=== PATIENT | female | born 1990 | race Caucasian/White ===

== ENCOUNTER 2017-09-18 16:47 | Emergency (ER) | payer OTHER ==
[~2017-09-18] VITALS: Ht 165.1 cm; Wt 52.2 kg
--- NOTE | 2017-09-18 17:53 | ED Upper Extremity ---
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 It is worse in the morning when she wakes up and she has to rub it out. She feels tingling and numbness and pain. She has used Tylenol with moderate relief. 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 She has not use any creams. She did get a splint for one of her hands that her mom has carpal tunnel and her home. She has a hard time working with the splint. She does not have a primary care physician and is still working on getting her insurance approved as she has recently moved to the area from [place]. She does not have any significant medical or surgical history. She has not experienced any weakness in her hands or dropping things. She denies any fevers, chills, nausea, vomiting, diarrhea, chest pain, shortness of breath , rash. No history of trauma to either extremity. Allergies and Home Medications Allergies Coded Allergies: No Known Drug Allergies (Unverified , 09/18/17) Constitutional: No chills, No diaphoresis EENTM: No ear pain, No eye pain Respiratory: No cough, No short of breath Cardiovascular: No chest pain, No edema Gastrointestinal: No abdominal pain, No constipation, No diarrhea, No nausea Genitourinary: No discharge, No dysuria : No Control/STD Prophylaxis: Other (tubal ligation) Musculoskeletal: see HPI, joint pain (bilateral wrists and hands) Skin: No pruritus, No rash Psychiatric/Neurological: Denies Headache, Denies Numbness, Denies Paresthesia Past Pqraizj-Pguzrz-Fwmgrr Hx Patient Social History Alcohol Use: Occasionally Uses Recreational Drug Use: No Smoking Status: Current Everyday Smoker Type Used: Cigarettes 2nd Hand Smoke Exposure: No Recent Foreign Travel: No Contact w/Someone Who Travel: No Recent Hopitalizations: No Physical Abuse: No Sexual Abuse: No Seasonal Allergies Seasonal Allergies: No Surgeries History of Surgeries: No Psychosocial Suicide Risk Score: 0 Physical Exam Vital Signs Capillary Refill : General Appearance: WD/WN, mild distress (tearful and interview) HEENT: PERRL/EOMI, pharynx normal Cardiovascular: normal peripheral pulses, no edema Respiratory: no respiratory distress, no accessory muscle use Shoulder: normal inspection, non-tender, no evidence of injury, normal ROM Elbow/Forearm: normal inspection, non-tender (nontender to palpation/ percussion of ulnar nerve.), no evidence of injury, normal ROM Wrist: Yes normal inspection, Yes no evidence of injury, Yes normal ROM, Yes pain (bilateral positive Tinel's And Phalen flap.) Hand: normal inspection, non-tender, no evidence of injury, normal ROM, Bilateral Neurologic/Tendon: normal sensation, normal motor functions, normal tendon functions, responds to pain Neurologic/Psychiatric: alert, oriented x 3 Skin: normal color, warm/dry Progress/Results/Core Measures Progress Note : Time: 17:52 Progress Note Classic carpal tunnel syndrome will start her on conservative therapy to include splints, ice, elevation, NSAID and give her referral to Dr. Bey, General Surgery if she's not seeing improvement in 2-4 weeks. We'll also encourage her to follow up with a primary care physician as soon as she gets her insurance together and can establish care. Prednisone burst therapy 5 days. Departure Impression Impression: Primary Impression: Carpal tunnel syndrome on both sides Disposition: 01 HOME, SELF-CARE Condition: Stable Departure-Patient Inst. Decision time for Depature: 17:53 Referrals: NO,LOCAL PHYSICIAN (PCP/Family) Primary Care Physician Patient Instructions: Carpal Tunnel Exercises, Carpal Tunnel Syndrome (DC) Add. Discharge Instructions: Please review the handout literature on carpal tunnel syndrome and exercises. Wear the splints while at work and during sleep except to bathe. For the next 3- 4 days apply ice for 20 minutes over the wrists every 4-6 hours as needed. Start a scheduled regimen of Naprosyn 500 mg twice a day (2 [id number] Naprosyn twice a day) or ibuprofen 800 mg every 8 hours. Continue these anti- inflammatories for 4 weeks. Keep your wrist elevated above the level of your heart and rest them when possible. If you're not seeing some improvement by 2- 4 weeks and I recommend you contact Dr. Bey at his office at [phone]. Establish care with a primary care physician as soon as possible for further management. Take the prednisone 2 tablets daily for the next 5 days. All discharge instructions reviewed with patient and/or family. Voiced understanding. Scripts Naproxen (Naprosyn) 500 Mg Tablet 500 MG PO BID for 30 Days, #60 TAB 0 Refills Prov: CELESTE BAKER 09/18/17 Prednisone (Prednisone) 20 Mg Tab 40 MG PO DAILY for 5 Days, #10 TAB 0 Refills Prov: CELESTE BAKER 09/18/17 Work/School Note: Work Release Form Date Seen in the Emergency Department: Sep 18, 2017 Return to Work: Sep 19, 2017 Restrictions: Need Release from Doctor Other Restrictions Listed Below: Keep wrist elevated above the level of the heart when possible. Copy Copies To 1: SUSANNE BEY DO CELESTE BAKER Sep 18, 2017 17:53
[2017-09-18] MEDS ORDERED: PRD20T PO (17:58)
[2017-09-18] MEDS ORDERED: NAPR500T PO (17:58)
[2017-09-18 18:10] VITALS: BP 113/94
== END 2017-09-18 18:10 | disposition home or self-care (01) ==
LOC: EDUNIT# 16:47 → ER 16:51
DX: G56.03 Carpal tunnel syndrome, bilateral upper limbs (principal); F17.210 Nicotine dependence, cigarettes, uncomplicated; Z98.51 Tubal ligation status
CPT/HCPCS: 99282

== ENCOUNTER 2017-12-30 06:34 | Emergency (ER) | payer MEDICAID ==
[~2017-12-30] VITALS: Ht 165.1 cm; Wt 54.4 kg
[~2017-12-30 06:34] MED LIST: AMOX-358 PO; NAPR-1071 PO; PRD20T PO; TRAM-42 PO
--- NOTE | 2017-12-30 07:53 | ED General ---
General Chief Complaint: Skin/Wound Problems Stated Complaint: ITCHING ALL OVER Nursing Triage Note: c/o generalized itching that is worse to scalp. Symptoms have been present at least for 1 month. 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 She identifies no specific area just that she has generalized itching. The man in the room with her is concerned that she has a "parasite in the skin". He states the parasites have been seen on the inside of her clothing and look like saleh hairs. On examination of the clothing all I see are saleh hairs and length. Patient is not very willing to engage in the encounter. She seems annoyed at my presence. She has some dystonic movements and seems distracted. She is alert and oriented. No other symptoms were expressed. The symptoms described could represent tactile hallucinations. Patient adamantly denies any drug or alcohol use. When I asked patient about her subtle dystonic movements she again denied substance abuse. Allergies and Home Medications Allergies Coded Allergies: No Known Drug Allergies (Unverified , 09/18/17) Home Medications Amoxicillin/Potassium Clav 1 Each Tablet, 1 EACH PO BID, #20 Prescribed by: NATHANIEL CANDELARIO on 10/03/17 0906 Tramadol HCl 50 Mg Tablet, 50 MG PO Q4H, #15 Prescribed by: NATHANIEL CANDELARIO on 10/03/17 0906 Constitutional: no symptoms reported EENTM: no symptoms reported Respiratory: no symptoms reported Cardiovascular: no symptoms reported Gastrointestinal: no symptoms reported Genitourinary: no symptoms reported : No Musculoskeletal: no symptoms reported Skin: see HPI Psychiatric/Neurological: See HPI Hematologic/Lymphatic: No Symptoms Reported Immunological/Allergic: no symptoms reported Past Jzwpoxk-Njlruy-Lmdplv Hx Patient Social History Alcohol Use: Occasionally Uses Recreational Drug Use: No Smoking Status: Current Everyday Smoker Type Used: Cigarettes 2nd Hand Smoke Exposure: No Recent Foreign Travel: No Contact w/Someone Who Travel: No Recent Infectious Disease Expo: No Recent Hopitalizations: No Seasonal Allergies Seasonal Allergies: No Surgeries History of Surgeries: Yes (BMT'S X 4 SETS) Surgeries: Ear Surgery Respiratory History of Respiratory Disorde: No Cardiovascular History of Cardiac Disorders: No Neurological History of Neurological Disord: No Reproductive System : No Genitourinary History of Genitourinary Disor: No Gastrointestinal History of Gastrointestinal Di: No Musculoskeletal History of Musculoskeletal Dis: No Endocrine History of Endocrine Disorders: No HEENT History of HEENT Disorders: Yes HEENT Disorders: Chronic Ear Infection Cancer History of Cancer: No Psychosocial History of Psychiatric Problem: No Integumentary History of Skin or Integumenta: No Blood Transfusions History of Blood Disorders: No Physical Exam Vital Signs Vital Sign - Last 12Hours 12/30/17 07:17 Temp 97.5 Pulse 86 Resp 16 B/P (MAP) 123/74 (90) Pulse Ox 99 O2 Delivery Room Air Capillary Refill : Less Than 3 Seconds General Appearance: No Apparent Distress, WD/WN HEENT: PERRL/EOMI, Normal ENT Inspection Neck: Normal Inspection Respiratory: Lungs Clear, Normal Breath Sounds, No Accessory Muscle Use, No Respiratory Distress Cardiovascular: Regular Rate, Rhythm, No Edema, No Murmur Gastrointestinal: Normal Bowel Sounds, Non Tender, Soft Extremity: Normal Inspection, No Pedal Edema Neurologic/Psychiatric: Alert, Oriented x3, 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 Patient appears annoyed that I am in the room and addressing stated complaints.) Skin: Normal Color, Warm/Dry, No Rash Progress/Results/Core Measures Suspected Sepsis Recent Fever Within 48 Hours: No Infection Criteria Present: None New/Unexplained Altered Menta: No Sepsis Screen: No Definite Risk Sepsis Diagnosis: SIRS Temperature:97.5 Pulse: 86 Respiratory Rate: 16 Blood Pressure 123 /74 Mean: 90 Results/Orders Vital Signs/I&O Capillary Refill : Less Than 3 Seconds Blood Pressure Mean: 90 Progress Note : Progress Note Patient was seen and examined. She acted very annoyed that I was in the room and asking her questions. She was alert and conversational but not a very willing participant in the encounter. The primary concern expressed by the patient and the man in the room with her was that there were "parasites on the inside of her clothing". They stated these "almost look like saleh hairs". They showed me the jacket she was wearing. There are numerous saleh hairs and pieces of lint that they point to. When I asked her to identify an area of her skin that is giving her a problem, she is unable to do so. There were no abnormalities on the face, upper extremities or trunk identified on skin exam. Departure Impression Impression: Primary Impression: Itching Disposition: 01 HOME, SELF-CARE Condition: Stable Departure-Patient Inst. Decision time for Depature: 07:52 Referrals: NO,LOCAL PHYSICIAN (PCP/Family) Primary Care Physician Patient Instructions: Itchy Skin Add. Discharge Instructions: You may take Benadryl (diphenhydramine) up to 50 mg every 6 hours as needed for itching. Follow-up with your doctor tomorrow if symptoms are still present. Return to the ER if symptoms worsen. All discharge instructions reviewed with patient and/or family. Voiced understanding. RUBY ESCOTO MD Dec 30, 2017 07:53
[2017-12-30 08:00] VITALS: BP 123/74
== END 2017-12-30 08:00 | disposition home or self-care (01) ==
LOC: EDUNIT# 06:34 → ER 06:36
DX: L29.8 Other pruritus (principal); F17.210 Nicotine dependence, cigarettes, uncomplicated
CPT/HCPCS: 99282

== ENCOUNTER 2018-05-14 16:32 | Inpatient (IN) | payer MEDICAID ==
[~2018-05-14] VITALS: Ht 165.1 cm; Wt 59.9 kg
[2018-05-14] MEDS ORDERED: NS IV 1000 ML 1,000 ML IV ONE (17:20)
[2018-05-14 17:28] LABS: BASOPHILS % (AUTO) 0 % (0-10); EOSINOPHILS % (AUTO) 0 % (0-10); HEMATOCRIT 40 % (35-52); LYMPHOCYTES # (AUTO) 0.7 X 10^3 (1.0-4.0); LYMPHOCYTES % (AUTO) 5 % (12-44); MEAN CORPUSCULAR HEMOGLOBIN 30 PG (25-34); MEAN CORPUSCULAR HGB CONC 35 G/DL (32-36); MEAN CORPUSCULAR VOLUME 86 FL (80-99); MEAN PLATELET VOLUME 9.7 FL (7.4-10.4); MONOCYTES # (AUTO) 1.2 X 10^3 (0.0-1.0); MONOCYTES % (AUTO) 9 % (0-12); NEUTROPHILS # (AUTO) 11.4 X 10^3 (1.8-7.8); NEUTROPHILS % (AUTO) 86 % (42-75); PLATELET COUNT 190 10^3/uL (130-400); RED BLOOD COUNT 4.69 10^6/uL (4.35-5.85); RED CELL DISTRIBUTION WIDTH 14.3 % (10.0-14.5); WHITE BLOOD COUNT 13.3 10^3/uL (4.3-11.0)
[2018-05-14 17:41] LABS: ALANINE AMINOTRANSFERASE 30 U/L (0-55); ALBUMIN 3.8 GM/DL (3.2-4.5); ALKALINE PHOSPHATASE 86 U/L (40-136); BILIRUBIN,TOTAL 0.8 MG/DL (0.1-1.0); BUN/CREATININE RATIO 10; CALCIUM 8.8 MG/DL (8.5-10.1); CARBON DIOXIDE 23 MMOL/L (21-32); CHLORIDE 100 MMOL/L (98-107); CREATININE SERUM 0.99 MG/DL (0.60-1.30); GFR ESTIMATED > 60; GLUCOSE 124 MG/DL (70-105); POTASSIUM 3.5 MMOL/L (3.6-5.0); SODIUM 133 MMOL/L (135-145); TOTAL PROTEIN 6.7 GM/DL (6.4-8.2)
[2018-05-14 17:48] LABS: BAND NEUTROPHILS 1 %; BASOPHILS % (MANUAL) 0 %; EOSINOPHILS % (MANUAL) 0 %; LYMPHOCYTES % (MANUAL) 8 %; MONOCYTES % (MANUAL) 7 %; NEUTROPHILS % (MANUAL) 84 %; RBC MORPH NORMAL
[2018-05-14] MEDS ORDERED: KETOROLAC 30 MG/ML VIAL IVP ONE (18:00)
[2018-05-14 18:08] LABS: CLARITY,URINE SLIGHTLY CLOUDY; COLOR,URINE YELLOW; GLUCOSE, URINE (UA) NEGATIVE (NEGATIVE); KETONES,URINE 3+ (NEGATIVE); LEUKOCYTE ESTERASE ,URINE 3+ (NEGATIVE); NITRITE,URINE NEGATIVE (NEGATIVE); PH,URINE 6 (5-9); PROTEIN,URINE 3+ (NEGATIVE); UROBILINOGEN,URINE 8 MG/DL (NORMAL)
[2018-05-14 18:17] LABS: BACTERIA,URINE MODERATE /HPF; WBC,URINE TNTC /HPF
[2018-05-14 18:18] LABS: BILIRUBIN,URINE 1+ (NEGATIVE)
[2018-05-14] MEDS ORDERED: ACETAMINOPHEN 500 MG TAB (TYLENOL) PO ONE (19:00)
[2018-05-14] MEDS ORDERED: cefTRIAXone INJECTION 1,000 MG in NS (IVPB) 50 ML IV ONE (19:00)
--- NOTE | 2018-05-14 19:14 | ED General ---
General Chief Complaint: Fever-Adult/Adol Stated Complaint: FEVER FOR 4 DAYS, SWEATING, NECK AND R SIDE PAIN Nursing Triage Note: PT C/O FEVER FOR FOUR DAYS. PT C/O R SIDE AND BACK PAIN, DARK URINE, DIARRHEA, AND NECK AND BACK PAIN AND STIFFNESS. PT STATES SHE HAS A HX OF KIDNEY STONES AND THIS FEELS SIMILAR TO THAT. DENIES PAINFUL URINATION. Nursing Sepsis Screen: No Definite Risk Source of Information: Patient Exam Limitations: No Limitations History of Present Illness Date Seen by Provider: May 14, 2018 Time Seen by Provider: 17:20 Initial Comments This patient presents with 4 days of illness including fever, right-sided back and flank pain, headache, some diarrhea, urinary frequency, and generalized aches. Patient has a history of kidney stones but states this pain feels different. She has noticed dark urine with odor but no blood. She is febrile on presentation. Allergies and Home Medications Allergies Coded Allergies: No Known Drug Allergies (Unverified , 09/18/17) Home Medications Amoxicillin/Potassium Clav 1 Each Tablet, 1 EACH PO BID Prescribed by: NATHANIEL CANDELARIO on 10/03/17905 Tramadol HCl 50 Mg Tablet, 50 MG PO Q4H Prescribed by: NATHANIEL CANDELARIO on 10/03/17 09 Patient Home Medication List Home Medication List Reviewed: Yes Review of Systems Constitutional: see HPI EENTM: see HPI Respiratory: no symptoms reported Cardiovascular: no symptoms reported Gastrointestinal: see HPI Genitourinary: see HPI : No Musculoskeletal: see HPI Skin: no symptoms reported Psychiatric/Neurological: No Symptoms Reported Hematologic/Lymphatic: No Symptoms Reported Immunological/Allergic: no symptoms reported Past Yomgifu-Xvyyeg-Pialrw Hx Past Med/Social Hx: Reviewed and Corrections made Patient Social History Alcohol Use: Regular Use Recreational Drug Use: No Type Used: Cigarettes 2nd Hand Smoke Exposure: No Recent Foreign Travel: No Contact w/Someone Who Travel: No Recent Infectious Disease Expo: No Recent Hopitalizations: No Seasonal Allergies Seasonal Allergies: No Past Medical History Surgeries: Yes (BMT'S X 4 SETS) Ear Surgery, Tonsillectomy Respiratory: No Cardiac: No Neurological: No Last Menstrual Period: May 14, 2018 Genitourinary: No Gastrointestinal: No Musculoskeletal: No Endocrine: No HEENT: Yes Chronic Ear Infection Cancer: No Psychosocial: No Integumentary: No Blood Disorders: No Physical Exam Vital Signs Vital Signs - First Documented 05/14/18 05/14/18 16:54 20:04 Temp 99.9 Pulse 115 Resp 18 B/P (MAP) 107/69 (82) Pulse Ox 99 O2 Delivery Room Air Capillary Refill : Less Than 3 Seconds General Appearance: WD/WN, Moderate Distress HEENT: PERRL/EOMI, Normal ENT Inspection, Other (Oropharynx pasty) Neck: Normal Inspection Respiratory: Lungs Clear, Normal Breath Sounds, No Accessory Muscle Use, No Respiratory Distress Cardiovascular: No Edema, No Murmur, Tachycardia Gastrointestinal: Normal Bowel Sounds, No Organomegaly, Non Tender, Soft Back: No CVA Tenderness (L); CVA Tenderness (R) (Mild) Extremity: Normal Inspection, No Pedal Edema Neurologic/Psychiatric: Alert, Oriented x3, No Motor/Sensory Deficits, Normal Mood/Affect, 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 as Tested Skin: Normal Color, Warm/Dry Focused Exam Lactate Level 05/14/18 19:08: Lactic Acid Level 0.98 Lactic Acid Level Laboratory Tests Test 05/14/18 19:08 Lactic Acid Level 0.98 MMOL/L (0.50-2.00) Progress/Results/Core Measures Suspected Sepsis Recent Fever Within 48 Hours: No Infection Criteria Present: None New/Unexplained Altered Menta: No Sepsis Screen: No Definite Risk SIRS Temperature:99.9 Pulse: 115 Respiratory Rate: 18 Laboratory Tests 05/14/18 17:02: White Blood Count 13.3H Blood Pressure 107 /69 Mean: 82 05/14/18 19:08: Lactic Acid Level 0.98 Laboratory Tests 05/14/18 17:02: Creatinine 0.99, Platelet Count 190, Total Bilirubin 0.8 Results/Orders Lab Results Laboratory Tests Test 05/14/18 17:02 05/14/18 18:03 05/14/18 19:08 Range/Units White Blood Count 13.3 H 4.3-11.0 10^3/uL Red Blood Count 4.69 4.35-5.85 10^6/uL Hemoglobin 14.0 11.5-16.0 G/DL Hematocrit 40 35-52 % Mean Corpuscular Volume 86 80-99 FL Mean Corpuscular Hemoglobin 30 25-34 PG Mean Corpuscular Hemoglobin Concent 35 32-36 G/DL Red Cell Distribution Width 14.3 10.0-14.5 % Platelet Count 190 130-400 10^3/uL Mean Platelet Volume 9.7 7.4-10.4 FL Neutrophils (%) (Auto) 86 H 42-75 % Lymphocytes (%) (Auto) 5 L 12-44 % Monocytes (%) (Auto) 9 0-12 % Eosinophils (%) (Auto) 0 0-10 % Basophils (%) (Auto) 0 0-10 % Neutrophils # (Auto) 11.4 H 1.8-7.8 X 10^3 Lymphocytes # (Auto) 0.7 L 1.0-4.0 X 10^3 Monocytes # (Auto) 1.2 H 0.0-1.0 X 10^3 Eosinophils # (Auto) 0.0 0.0-0.3 10^3/uL Basophils # (Auto) 0.0 0.0-0.1 10^3/uL Neutrophils % (Manual) 84 % Lymphocytes % (Manual) 8 % Monocytes % (Manual) 7 % Eosinophils % (Manual) 0 % Basophils % (Manual) 0 % Band Neutrophils 1 % Blood Morphology Comment NORMAL Sodium Level 133 L 135-145 MMOL/L Potassium Level 3.5 L 3.6-5.0 MMOL/L Chloride Level 100 98-107 MMOL/L Carbon Dioxide Level 23 21-32 MMOL/L Anion Gap 10 5-14 MMOL/L Blood Urea Nitrogen 10 7-18 MG/DL Creatinine 0.99 0.60-1.30 MG/DL Estimat Glomerular Filtration Rate > 60 BUN/Creatinine Ratio 10 Glucose Level 124 H 70-105 MG/DL Calcium Level 8.8 8.5-10.1 MG/DL Total Bilirubin 0.8 0.1-1.0 MG/DL Aspartate Amino Transf (AST/SGOT) 27 5-34 U/L Alanine Aminotransferase (ALT/SGPT) 30 0-55 U/L Alkaline Phosphatase 86 40-136 U/L C-Reactive Protein High Sensitivity 24.51 H 0.00-0.50 MG/DL Total Protein 6.7 6.4-8.2 GM/DL Albumin 3.8 3.2-4.5 GM/DL Serum Test, Qualitative NEGATIVE NEGATIVE Urine Color YELLOW Urine Clarity SLIGHTLY CLOUDY Urine pH 6 5-9 Urine Specific [place] 1.015 L 1.016-1.022 Urine Protein 3+ H NEGATIVE Urine Glucose (UA) NEGATIVE NEGATIVE Urine Ketones 3+ H NEGATIVE Urine Nitrite NEGATIVE NEGATIVE Urine Bilirubin 1+ H NEGATIVE Urine Urobilinogen 8 H NORMAL MG/DL Urine Leukocyte Esterase 3+ H NEGATIVE Urine RBC (Auto) 4+ H NEGATIVE Urine RBC 2-5 H /HPF Urine WBC TNTC H /HPF Urine Squamous Epithelial Cells 2-5 /HPF Urine Crystals NONE /LPF Urine Bacteria MODERATE H /HPF Urine Casts NONE /LPF Urine Mucus SMALL H /LPF Urine Culture Indicated YES Lactic Acid Level 0.98 0.50-2.00 MMOL/L My Orders Orders - RUBY ESCOTO MD Cbc With Automated Diff (05/14/18 17:20) Comprehensive Metabolic Panel (05/14/18 17:20) Hs C Reactive Protein (05/14/18 17:20) Hcg,Qualitative Serum (05/14/18 17:20) Ua Culture If Indicated (05/14/18 17:20) Saline Lock/Iv-Start (05/14/18 17:20) Ns Iv 1000 Ml (Sodium Chloride 0.9%) (05/14/18 17:20) Manual Differential (05/14/18 17:02) Ketorolac Injection (Toradol Injection) (05/14/18 18:00) Urine Culture (05/14/18 18:03) Ceftriaxone Injection (Rocephin Injectio (05/14/18 19:00) Acetaminophen Tablet (Tylenol Tablet) (05/14/18 19:00) Blood Culture (05/14/18 18:59) Lactic Acid Analyzer (05/14/18 18:59) Medications Given in ED Current Medications Medications Dose Ordered Sig/Andrez Route Start Time Stop Time Status Last Admin Dose Admin Acetaminophen 1,000 mg ONCE ONCE PO 05/14/18 19:00 05/14/18 19:01 DC 05/14/18 19:39 1,000 MG Ceftriaxone Sodium 1000 mg/ Sodium Chloride 50 ml @ 100 mls/hr ONCE ONCE IV 05/14/18 19:00 05/14/18 19:29 DC 05/14/18 19:39 100 MLS/HR Ketorolac Tromethamine 15 mg ONCE ONCE IVP 05/14/18 18:00 05/14/18 18:01 DC 05/14/18 18:02 15 MG Sodium Chloride 1,000 ml @ 0 mls/hr Q0M ONCE IV 05/14/18 17:20 05/14/18 17:22 DC 05/14/18 17:26 1,000 MLS/HR Vital Signs/I&O 05/14/18 05/14/18 05/14/18 05/14/18 16:54 20:04 20:15 21:29 Temp 99.9 99.2 100.3 97.5 Pulse 115 90 88 Resp 18 16 20 B/P (MAP) 107/69 (82) 110/75 97/52 (67) Pulse Ox 99 97 O2 Delivery Room Air Room Air Room Air Capillary Refill : Less Than 3 Seconds Blood Pressure Mean: 82 Progress Note : Progress Note Patient was hydrated with a liter of IV normal saline. Pain was treated with Toradol with some improvement. Tylenol was ordered for additional treatment. Patient was found to have a very significant urinary tract infection. Rocephin was started after blood cultures and lactic acid were drawn. Case was discussed with Dr. Alexander to agrees with admission and treatment plan. CT scan was not performed as patient stated this pain felt different than her prior episodes of kidney stones and there was not a significant amount of blood in her urine. However, I did ask her to discuss imaging further with Dr. Alexander tomorrow if not improving as expected. Departure Communication (Admissions) Time/Spoke to Admitting Phy: 17:00 Dr. Alexander Impression Primary Impression: Sepsis Qualified Codes: A41.9 - Sepsis, unspecified organism Additional Impression: Pyelonephritis Disposition: ADMITTED INPATIENT Condition: Improved Admissions Decision to Admit Reason: Admit from ER (General) Decision to Admit/Date: May 14, 2018 Time/Decision to Admit Time: 18:54 Departure-Patient Inst. Referrals: NO,LOCAL PHYSICIAN (PCP/Family) Primary Care Physician RUBY ESCOTO MD May 14, 2018 19:14
[2018-05-14 20:15] VITALS: BP 97/52
[2018-05-14] MEDS ORDERED: CATHETER FLUSH 10 ML SYR IV PRN (20:30)
[2018-05-14] MEDS ORDERED: ONDANSETRON 4 MG/2 ML (SDV) Z0FRAN IV PRN (20:30)
[2018-05-14] MEDS: NS IV 1000 ML 1,000 ML IV SCH (21:22)
[2018-05-14] MEDS: ACETAMINOPHEN 500 MG TAB (TYLENOL) PO PRN (23:57)
[2018-05-15] VITALS: BP 103/56
[2018-05-15] MEDS: NS IV 1000 ML 1,000 ML IV SCH ×4 (03:22→23:24)
[2018-05-15 04:00] VITALS: BP 117/71
[2018-05-15] MEDS: KETOROLAC 15 MG/ML VIAL IV PRN ×2 (05:30→16:15)
[2018-05-15 06:19] LABS: BASOPHILS % (AUTO) 0 % (0-10); EOSINOPHILS % (AUTO) 0 % (0-10); HEMATOCRIT 34 % (35-52); LYMPHOCYTES # (AUTO) 0.6 X 10^3 (1.0-4.0); LYMPHOCYTES % (AUTO) 7 % (12-44); MEAN CORPUSCULAR HEMOGLOBIN 30 PG (25-34); MEAN CORPUSCULAR HGB CONC 35 G/DL (32-36); MEAN CORPUSCULAR VOLUME 86 FL (80-99); MEAN PLATELET VOLUME 10.3 FL (7.4-10.4); MONOCYTES # (AUTO) 0.9 X 10^3 (0.0-1.0); MONOCYTES % (AUTO) 9 % (0-12); NEUTROPHILS # (AUTO) 7.7 X 10^3 (1.8-7.8); NEUTROPHILS % (AUTO) 84 % (42-75); PLATELET COUNT 142 10^3/uL (130-400); RED CELL DISTRIBUTION WIDTH 14.1 % (10.0-14.5); WHITE BLOOD COUNT 9.2 10^3/uL (4.3-11.0)
[2018-05-15 06:38] LABS: BUN/CREATININE RATIO 16; CALCIUM 7.8 MG/DL (8.5-10.1); CARBON DIOXIDE 16 MMOL/L (21-32); CHLORIDE 107 MMOL/L (98-107); GFR ESTIMATED > 60; GLUCOSE 105 MG/DL (70-105); POTASSIUM 3.6 MMOL/L (3.6-5.0); SODIUM 135 MMOL/L (135-145)
[2018-05-15 08:00] VITALS: BP 101/64
[2018-05-15] MEDS: cefTRIAXone 1 GM/NS 50 ML IVPB IV SCH ×2 (09:16)
[2018-05-15] MEDS: ACETAMINOPHEN 500 MG TAB (TYLENOL) PO PRN ×2 (09:20→16:13)
--- NOTE | 2018-05-15 11:39 | History & Physical-Hospitalist ---
History of Present Illness HPI/Chief Complaint CC: Acute pyelonephritis HPI: This is a 28-year-old white female that normally sees [facility] walk-in clinic yet to be established who presented to the ER with fever and not feeling well found to have acute pyelonephritis and leukocytosis. She was deemed meeting criteria for IV fluids and IV antibiotics awaiting urine culture and has since been feeling better since admission. I counseled her on smoking cessation and did obtain a follow-up appointment at [facility] for her to get established there. Source: patient Exam Limitations: no limitations Date Seen 05/15/18 Time Seen by Provider: 10:45 Attending Physician Daniel Alexander MD PCP No,Local Physician Referring Physician Date of Admission May 14, 2018 at 19:48 Home Medications & Allergies Home Medications Reviewed patient Home Medication Reconciliation performed by pharmacy medication reconciliations body technician/painter and/or nursing. Patients Allergies have been reviewed. Allergies Allergies Coded Allergies No Known Drug Allergies (Wswtcifhai81/24/17) Past Vstkerr-Wvnkjj-Nwvqjr Hx Past Med/Social Hx: Reviewed Nursing Past Med/Soc Hx, Reviewed and Corrections made Patient Social History Marrital Status: cohabiting Alcohol Use: Regular Use Number of Drinks Today: DD Alcohol Beverage of Choice: Vodka Recreational Drug Use: No Smoking Status: Current Everyday Smoker Type Used: Cigarettes 2nd Hand Smoke Exposure: No Physical Abuse Screen: No Sexual Abuse: No Recent Foreign Travel: No Contact w/other who traveled: No Recent Hopitalizations: No Recent Infectious Disease Expo: No Seasonal Allergies Seasonal Allergies: No Past Medical History Surgeries: Ear Surgery, Tonsillectomy Sexually Transmitted Disease: No HIV/AIDS: No Genitourinary: Kidney Stones HEENT: Chronic Ear Infection Loss of Vision: Denies Hearing Impairment: Denies History of Blood Disorders: No Review of Systems Constitutional: see HPI, dizziness, fever, malaise, weakness EENTM: no symptoms reported Respiratory: no symptoms reported Cardiovascular: no symptoms reported Gastrointestinal: nausea, vomiting Genitourinary: decreased output, dysuria, frequency, hematuria, hesitancy, nocturia Musculoskeletal: back pain Skin: no symptoms reported Psychiatric/Neurological: Anxiety, Depressed All Other Systems Reviewed Negative Unless Noted: Yes Physical Exam Physical Exam Vital Signs Vital Signs - First Documented 05/14/18 05/14/18 16:54 20:04 Temp 99.9 Pulse 115 Resp 18 B/P (MAP) 107/69 (82) Pulse Ox 99 O2 Delivery Room Air Capillary Refill : Less Than 3 SecondsLess Than 3 Seconds General Appearance: No Apparent Distress, WD/WN, Chronically ill Eyes: Bilateral Eye Normal Inspection, Bilateral Eye PERRL HEENT: PERRL/EOMI, Normal ENT Inspection, Pharynx Normal Neck: Full Range of Motion, Normal Inspection, Non Tender, Supple, Carotid Bruit Respiratory: Chest Non Tender, Lungs Clear, Normal Breath Sounds, No Accessory Muscle Use, No Respiratory Distress Cardiovascular: Regular Rate, Rhythm, No Edema, No Gallop, No JVD, No Murmur, Normal Peripheral Pulses Gastrointestinal: Normal Bowel Sounds, No Organomegaly, No Pulsatile Mass, Non Tender, Soft Back: Normal Inspection, No CVA Tenderness, No Vertebral Tenderness Extremity: Normal Capillary Refill, Normal Inspection, Normal Range of Motion, Non Tender, No Calf Tenderness, No Pedal Edema Neurologic/Psychiatric: Alert, Oriented x3, No Motor/Sensory Deficits, Normal Mood/Affect Skin: Normal Color, Warm/Dry Lymphatic: No Adenopathy Results Results/Procedures Labs Laboratory Tests 05/14/18 17:02 05/15/18 05:55 Patient resulted labs reviewed. Assessment/Plan Admission Diagnosis Acute Pyelonephritis Smoker Admission Status: Inpatient Order (span 2 midnights) Reason for Inpatient Admission: IV abx and IV fluids for sepsis will take 3 days Assessment and Plan Plan: IVF IV abx DC tomorrow Diagnosis/Problems Diagnosis/Problems (1) Sepsis Status: Acute Qualifiers: Sepsis type: sepsis due to unspecified organism Qualified Codes: A41.9 - Sepsis, unspecified organism (2) Pyelonephritis Status: Acute (3) Smoker Status: Chronic Clinical Quality Measures DVT/VTE Risk/Contraindication: Risk Factor Score Per Nursin RFS Level Per Nursing on Admit: 3=High LUCY FISH DO May 15, 2018 11:39
[2018-05-15 12:00] VITALS: BP 115/70
[2018-05-15 16:00] VITALS: BP 115/80
[2018-05-15 19:20] VITALS: BP 95/62
[2018-05-16] VITALS: BP 105/65
[2018-05-16] MEDS: KETOROLAC 15 MG/ML VIAL IV PRN (03:35)
[2018-05-16 04:00] VITALS: BP 97/55
[2018-05-16] MEDS: NS IV 1000 ML 1,000 ML IV SCH (06:18)
[2018-05-16 06:36] LABS: BASOPHILS % (AUTO) 0 % (0-10); EOSINOPHILS % (AUTO) 0 % (0-10); HEMATOCRIT 31 % (35-52); HEMOGLOBIN 10.3 G/DL (11.5-16.0); LYMPHOCYTES # (AUTO) 0.9 X 10^3 (1.0-4.0); LYMPHOCYTES % (AUTO) 13 % (12-44); MEAN CORPUSCULAR HEMOGLOBIN 29 PG (25-34); MEAN CORPUSCULAR HGB CONC 33 G/DL (32-36); MEAN CORPUSCULAR VOLUME 86 FL (80-99); MEAN PLATELET VOLUME 10.4 FL (7.4-10.4); MONOCYTES # (AUTO) 1.1 X 10^3 (0.0-1.0); MONOCYTES % (AUTO) 16 % (0-12); NEUTROPHILS # (AUTO) 4.8 X 10^3 (1.8-7.8); NEUTROPHILS % (AUTO) 71 % (42-75); PLATELET COUNT 160 10^3/uL (130-400); RED BLOOD COUNT 3.59 10^6/uL (4.35-5.85); RED CELL DISTRIBUTION WIDTH 14.5 % (10.0-14.5); WHITE BLOOD COUNT 6.7 10^3/uL (4.3-11.0)
[2018-05-16 06:59] LABS: ALANINE AMINOTRANSFERASE 35 U/L (0-55); ALBUMIN 2.6 GM/DL (3.2-4.5); ALKALINE PHOSPHATASE 66 U/L (40-136); BILIRUBIN,TOTAL 0.2 MG/DL (0.1-1.0); BUN/CREATININE RATIO 9; CALCIUM 7.5 MG/DL (8.5-10.1); CARBON DIOXIDE 17 MMOL/L (21-32); CHLORIDE 110 MMOL/L (98-107); CREATININE SERUM 0.64 MG/DL (0.60-1.30); GFR ESTIMATED > 60; GLUCOSE 112 MG/DL (70-105); POTASSIUM 3.1 MMOL/L (3.6-5.0); SODIUM 136 MMOL/L (135-145); TOTAL PROTEIN 4.4 GM/DL (6.4-8.2)
[2018-05-16 08:00] VITALS: BP 105/70
[2018-05-16] MEDS: cefTRIAXone 1 GM/NS 50 ML IVPB IV SCH ×2 (09:22)
[2018-05-16] MEDS ORDERED: KCL 20 MEQ TAB (K-DUR) PO NR (09:45)
[2018-05-16] MEDS ORDERED: ACHD5005 PO (10:42)
[2018-05-16] MEDS ORDERED: AMOX875T2 PO (10:42)
--- NOTE | 2018-05-16 10:42 | Discharge Summary-Hospitalist ---
Diagnosis/Chief Complaint Date of Admission May 14, 2018 at 19:48 Date of Discharge Discharge Date: May 16, 2018 Admission Diagnosis Acute Pyelonephritis Smoker Discharge Diagnosis (1) Sepsis Status: Acute (2) Pyelonephritis Status: Acute (3) Smoker Status: Chronic Discharge Summary Discharge Physical Exam Allergies: Coded Allergies: No Known Drug Allergies (Unverified , 09/18/17) Vitals & I&Os Vital Signs Date Time Temp Pulse Resp B/P (MAP) Pulse Ox O2 Delivery O2 Flow Rate FiO2 05/16/18 11:10 72 20 105/70 99 Room Air 05/16/18 08:00 98.6 General Appearance: Alert, Oriented X3, Cooperative Respiratory: Clear to Auscultation, Normal Air Movement Cardiovascular: Regular Rate, Normal S1, Normal S2 Neuro: Normal Gait, Normal Speech, Strength at 5/5 X4 Ext Psych/Mental Status: Mental Status NL, Mood NL Hospital Course Hospital course: Patient had an uneventful hospital course she was admitted for sepsis and pyelonephritis and leukocytosis. IV fluids were aggressively given and she improved rapidly to IV Rocephin. Urine culture reviewed it was pansensitive so she went home on amoxicillin 875 MG twice daily and [facility] Labs (last 24 hrs) Laboratory Tests 05/16/18 06:03: White Blood Count 6.7, Red Blood Count 3.59L, Hemoglobin 10.3L, Hematocrit 31L, Mean Corpuscular Volume 86, Mean Corpuscular Hemoglobin 29, Mean Corpuscular Hemoglobin Concent 33, Red Cell Distribution Width 14.5, Platelet Count 160, Mean Platelet Volume 10.4, Neutrophils (%) (Auto) 71, Lymphocytes (%) (Auto) 13 , Monocytes (%) (Auto) 16H, Eosinophils (%) (Auto) 0, Basophils (%) (Auto) 0, Neutrophils # (Auto) 4.8, Lymphocytes # (Auto) 0.9L, Monocytes # (Auto) 1.1H, Eosinophils # (Auto) 0.0, Basophils # (Auto) 0.0, Sodium Level 136, Potassium Level 3.1L, Chloride Level 110H, Carbon Dioxide Level 17L, Anion Gap 9, Blood Urea Nitrogen 6L, Creatinine 0.64, Estimat Glomerular Filtration Rate > 60, BUN/ Creatinine Ratio 9, Glucose Level 112H, Calcium Level 7.5L, Total Bilirubin 0.2 , Aspartate Amino Transf (AST/SGOT) 26, Alanine Aminotransferase (ALT/SGPT) 35, Alkaline Phosphatase 66, Total Protein 4.4L, Albumin 2.6L Microbiology 05/14/18 Blood Culture - Preliminary, Resulted No growth 05/14/18 Urine Culture - Final, Complete Escherichia coli Patient resulted labs reviewed. Pending Labs Laboratory Tests 05/16/18 06:03: White Blood Count 6.7, Red Blood Count 3.59, Hemoglobin 10.3, Hematocrit 31, Mean Corpuscular Volume 86, Mean Corpuscular Hemoglobin 29, Mean Corpuscular Hemoglobin Concent 33, Red Cell Distribution Width 14.5, Platelet Count 160, Mean Platelet Volume 10.4, Neutrophils (%) (Auto) 71, Lymphocytes (%) (Auto) 13 , Monocytes (%) (Auto) 16, Eosinophils (%) (Auto) 0, Basophils (%) (Auto) 0, Neutrophils # (Auto) 4.8, Lymphocytes # (Auto) 0.9, Monocytes # (Auto) 1.1, Eosinophils # (Auto) 0.0, Basophils # (Auto) 0.0, Sodium Level 136, Potassium Level 3.1, Chloride Level 110, Carbon Dioxide Level 17, Anion Gap 9, Blood Urea Nitrogen 6, Creatinine 0.64, Estimat Glomerular Filtration Rate > 60, BUN/ Creatinine Ratio 9, Glucose Level 112, Calcium Level 7.5, Total Bilirubin 0.2, Aspartate Amino Transf (AST/SGOT) 26, Alanine Aminotransferase (ALT/SGPT) 35, Alkaline Phosphatase 66, Total Protein 4.4, Albumin 2.6 Discussion & Recommendations Discharge Planning: <30 minutes discharge planning Discharge Home Medications: Active Scripts Active Amoxicillin 875 Mg Tablet 875 Mg PO BID Hydrocodone/Acetaminophen 5/325mg Tablet (Acetaminophen/Hydrocodone Bitart) 1 Tab Tab 1 Tab PO BID PRN Instructions to patient/family Please see electronic discharge instructions given to patient. Clinical Quality Measures DVT/VTE Risk/Contraindication: Risk Factor Score Per Nursin RFS Level Per Nursing on Admit: 3=High Problem Qualifiers (1) Sepsis: Sepsis type: sepsis due to unspecified organism Qualified Codes: A41.9 - Sepsis, unspecified organism LUCY FISH DO May 16, 2018 10:42
[2018-05-16 11:10] VITALS: BP 105/70
== END 2018-05-16 11:10 | disposition home or self-care (01) | DRG 872 ==
LOC: EDUNIT# 16:32 → ER 16:33 → 4TH 19:48
PROVIDERS: ADMIT Internal Medicine; ATTEND Internal Medicine
DX: A41.9 Sepsis, unspecified organism (principal); N10 Acute pyelonephritis; F17.210 Nicotine dependence, cigarettes, uncomplicated; Z87.442 Personal history of urinary calculi
CPT/HCPCS: 36415; 80048; 80053; 81000; 83605; 84703; 85007; 85025; 85027; 86141; 87040; 87077; 87088; 87186; 96361; 96365; 96375

== ENCOUNTER 2018-11-06 10:23 | Emergency (ER) | payer MEDICAID ==
[~2018-11-06] VITALS: Ht 165.1 cm; Wt 59.0 kg
[~2018-11-06 10:23] MED LIST changes: +ACHD5005 PO; +AMOX875T2 PO
[2018-11-06] MEDS ORDERED: LIDOCAINE 1% INJ 20 ML 20 ML VIAL INJ ONE (11:30)
[2018-11-06] MEDS ORDERED: CEPH-507 PO (11:44)
--- NOTE | 2018-11-06 11:44 | ED Integumentary General ---
General Chief Complaint: Skin/Wound Problems Stated Complaint: ABSCESS ON RIGHT INDEX FINGER Nursing Triage Note: Pt reports wound to R index finger. States she got a paper cut at work a few days ago and finger became reddened and swollen last night. Source: patient Exam Limitations: no limitations History of Present Illness Date Seen by Provider: Nov 06, 2018 Time Seen by Provider: 11:20 Initial Comments Patient is a 28-year-old female who presents to the emergency room with complaints of infection to her right second finger after she had a paper cut at work a few days ago. She reports that last night the finger became red and painful and swollen. There is an abscess to the finger. Timing/Duration: yesterday Location: hands (right second finger) Associated Symptoms: denies symptoms Allergies and Home Medications Allergies Coded Allergies: No Known Drug Allergies (Unverified , 09/18/17) Home Medications Cephalexin 500 Mg Capsule, 500 MG PO Q6H Prescribed by: NEISHA BOWMAN on 11/06/18 1144 Past Swyqpoo-Ddkxhq-Cpbqpf Hx Patient Social History Alcohol Use: Occasionally Uses Number of Drinks Today: FF Alcohol Beverage of Choice: Vodka Recreational Drug Use: No Smoking Status: Current Everyday Smoker Type Used: Cigarettes 2nd Hand Smoke Exposure: No Recent Foreign Travel: No Contact w/Someone Who Travel: No Recent Infectious Disease Expo: No Recent Hopitalizations: No Immunizations Up To Date Tetanus Booster (TDap): Unknown Seasonal Allergies Seasonal Allergies: No Past Medical History Surgeries: Yes (BMT'S X 4 SETS) Ear Surgery, Tonsillectomy Respiratory: No Cardiac: No Neurological: No Sexually Transmitted Disease: No HIV/AIDS: No Genitourinary: Yes Kidney Stones Gastrointestinal: No Musculoskeletal: No Endocrine: No HEENT: Yes Chronic Ear Infection Loss of Vision: Denies Hearing Impairment: Denies Cancer: No Psychosocial: No Integumentary: No Blood Disorders: No Physical Exam Vital Signs Vital Signs - First Documented 11/06/18 10:51 Temp 98.0 Pulse 97 Resp 18 B/P (MAP) 141/95 (110) Pulse Ox 100 O2 Delivery Room Air Capillary Refill : Less Than 3 Seconds Progress/Results/Core Measures Results/Orders My Orders Orders - NEISHA BOWMAN Lidocaine 1% Inj 20 Ml (Xylocaine 1% Inj (11/06/18 11:30) Mupirocin Ointment (Bactroban Ointment (11/06/18 21:00) Medications Given in ED Current Medications Medications Dose Ordered Sig/Andrez Route Start Time Stop Time Status Last Admin Dose Admin Lidocaine HCl 20 ml ONCE ONCE INJ 11/06/18 11:30 11/06/18 11:31 DC 11/06/18 11:36 20 ML Vital Signs/I&O 11/06/18 10:51 Temp 98.0 Pulse 97 Resp 18 B/P (MAP) 141/95 (110) Pulse Ox 100 O2 Delivery Room Air Blood Pressure Mean: 110 Departure Impression Primary Impression: Paronychia Disposition: HOME, SELF-CARE Condition: Stable/Unchanged Departure-Patient Inst. Decision time for Depature: 11:41 Referrals: [facility] [place] (PCP/Family) Primary Care Physician Patient Instructions: Abscess Incision and Drainage (DC), Paronychia (DC) Add. Discharge Instructions: Take medications as directed. Follow-up with her primary care provider within 1 week for recheck. Tylenol and ibuprofen as needed for pain relief. Use topical Bactroban ointment was provided in the emergency room for daily dressing changes. Warm Epsom salts soaks may be beneficial to help to facilitate drainage. Return back to the emergency room for any worsening symptoms or concerns as needed. All discharge instructions reviewed with patient and/or family. Voiced understanding. Scripts Cephalexin (Keflex) 500 Mg Capsule 500 MG PO Q6H for 7 Days, #28 CAP Prov: NEISHA BOWMAN 11/06/18 Work/School Note: Work Release Form Date Seen in the Emergency Department: Nov 06, 2018 Return to Work: Nov 07, 2018 Restrictions: No Restrictions NEISHA BOWMAN Nov 06, 2018 11:44
[2018-11-06] MEDS ORDERED: RX-MUPIROCIN (BACTROBAN) 2% OINT 22 GM TUBE ONE (12:05)
[2018-11-06 12:14] VITALS: BP 141/95
--- OUTSIDE RECORDS SUMMARY | 2018-11-06 13:35 | XMS REPORT ---
Author Author YON ANNA Organization [facility] Address [address] [place] [address] Care Team Providers Care Database Reporting Consultant Name Role Phone YON ANNA Unavailable PROBLEMS Type Condition ICD9-CM Code [id number] Code Onset Dates Condition Status SNOMED Code Problem Anxiety F41.9 Active 37448292 Problem Depressive disorder, not elsewhere classified F32.9 Active 81647298 Problem PTSD (post-traumatic stress disorder) F43.10 Active 18787555 ALLERGIES No Known Allergies ENCOUNTERS Encounter Location Date Diagnosis [place] [address] [phone] Jul, [facility] [address] [place] [id number] [place] [place] [phone] Apr, Hospital discharge follow-up Z09 ; Pyelonephritis N12 ; Hypokalemia E87.6 ; Yeast vaginitis B37.3 and Anxiety F41.9 [facility] [address] [place] [id number] [place] [phone] Jun, [place] [address] [place] [id number] [place] [phone] Jun, PTSD (post-traumatic stress disorder) F43.10 and Depressive disorder, not elsewhere classified F32.9 IMMUNIZATIONS No Known Immunizations SOCIAL HISTORY Never Assessed REASON FOR VISIT [facility] follow up, UTI/sepsis-----Liban, called for records PLAN OF CARE Activity Details Follow Up prn Reason:lab work Pending Test UA LONG DIP (IN HOUSE) Pending Test BMP VITAL SIGNS Height 65 in 2018-05-23 Weight 127 lbs 2018-05-23 Temperature 97.9 degrees Fahrenheit 2018-05-23 Heart Rate 90 bpm 2018-05-23 Respiratory Rate 20 2018-05-23 BMI 21.13 kg/m2 2018-05-23 Blood pressure systolic 104 mmHg 2018-05-23 Blood pressure diastolic 70 mmHg 2018-05-23 MEDICATIONS Medication Instructions Dosage Frequency Start Date End Date Duration Status Fluconazole 150 MG Orally once, march repeat X 1 in one week if necessary 1 tablet Apr, 1 dose Active RESULTS No Results PROCEDURES Procedure Date Ordered Result Body Site LAB [facility] May 23, 2018 VENIPUNCT, ROUTINE* May 23, 2018 URINALYSIS, AUTO, W/O SCOPE May 23, 2018 INSTRUCTIONS MEDICATIONS ADMINISTERED No Known Medications MEDICAL (GENERAL) HISTORY Type Description Date Surgical History tonsillectomy and adenoidectomy Hospitalization History UTI/sepsis 05/13
--- OUTSIDE RECORDS SUMMARY | 2018-11-06 13:35 | XMS REPORT | Continuity of Care Document ---
Demographics Preferred Language Unknown Marital Status Unknown Alevism Affiliation Unknown Race Unknown Ethnic Group Unknown Author Author [facility] Organization [facility] Address Unknown Phone Unavailable Allergies Active Description Code Type Severity Reaction Onset Reported/Identified Relationship to Patient Clinical Status Yes No Known Drug Allergies [id number] Drug Allergy Unknown N/A 09/18/2017 Medications There is no data. Problems Date Dx Coded Attending Type Code Diagnosis Diagnosed By 09/18/2017 OLIVIA VANG, CELESTE Griffith Ot F17.210 NICOTINE DEPENDENCE, CIGARETTES, UNCOMPL 09/18/2017 CELESTE BAKER MD Ot G56.03 CARPAL TUNNEL SYNDROME, BILATERAL UPPER 09/18/2017 CELESTE BAKER MD Ot M79.642 PAIN IN LEFT HAND 09/18/2017 CELESTE BAKER MD Ot Z98.51 TUBAL LIGATION STATUS 10/03/2017 ALEJANDRO CANDELARIO DOA Pino Ot F17.210 NICOTINE DEPENDENCE, CIGARETTES, UNCOMPL 10/03/2017 KODAK JOHNSON NATHANIEL K Ot H61.22 IMPACTED CERUMEN, LEFT EAR 10/03/2017 KOADK JOHNSON NATHANIEL K Ot H92.02 OTALGIA, LEFT EAR 10/03/2017 KODAK JOHNSON NATHANIEL K Ot Z86.69 PERSONAL HISTORY OF DIS OF THE NERVOUS S 10/04/2017 RAYMUNDO COKER APRN Ot K08.89 OTHER SPECIFIED DISORDERS OF TEETH AND S 10/04/2017 RAYMUNDO COKER APRN Ot Z86.19 PERSONAL HISTORY OF OTHER INFECTIOUS AND 10/04/2017 RAYMUNDO COKER APRN Ot Z98.890 OTHER SPECIFIED POSTPROCEDURAL STATES 10/05/2017 KODAK DO NATHANIEL K Ot F17.210 NICOTINE DEPENDENCE, CIGARETTES, UNCOMPL 10/05/2017 KODAK DO NATHANIEL K Ot H61.22 IMPACTED CERUMEN, LEFT EAR 10/05/2017 KODAK DO NATHANIEL K Ot Z86.69 PERSONAL HISTORY OF DIS OF THE NERVOUS S 12/30/2017 RUBY ESCOTO MD Ot F17.210 NICOTINE DEPENDENCE, CIGARETTES, UNCOMPL 12/30/2017 RUBY ESCOTO MD Ot L29.8 OTHER PRURITUS 01/01/2018 TIGIST VANG, RUBY Graff Ot F17.210 NICOTINE DEPENDENCE, CIGARETTES, UNCOMPL 01/01/2018 TIGIST VANG, RUBY Graff Ot L29.8 OTHER PRURITUS 02/08/2018 KODAK , NATHANIEL Pino Ot F17.210 NICOTINE DEPENDENCE, CIGARETTES, UNCOMPL 02/08/2018 KODAK NATHANIEL K Ot H61.22 IMPACTED CERUMEN, LEFT EAR 02/08/2018 KODAK NATHANIEL Ot H92.02 OTALGIA, LEFT EAR 02/08/2018 KODAK , NATHANIEL K Ot Z86.69 PERSONAL HISTORY OF DIS OF THE NERVOUS S 05/16/2018 RITO JOSHUA MD Ot A41.9 SEPSIS, UNSPECIFIED ORGANISM 05/16/2018 RITO JOSHUA MD Ot F17.210 NICOTINE DEPENDENCE, CIGARETTES, UNCOMPL 05/16/2018 RITO JOSHUA MD Ot N10 ACUTE PYELONEPHRITIS 05/16/2018 RITO JOSHUA MD Ot Z87.442 PERSONAL HISTORY OF URINARY CALCULI Procedures There is no data. Results Test Result Range Complete blood count (CBC) with automated white blood cell (WBC) differential - 05/14/18 17:02 Blood leukocytes automated count (number/volume) 13.3 10*3/uL 4.3-11.0 Blood erythrocytes automated count (number/volume) 4.69 10*6/uL 4.35-5.85 Venous blood hemoglobin measurement (mass/volume) 14.0 g/dL 11.5-16.0 Blood hematocrit (volume fraction) 40 % 35-52 Automated erythrocyte mean corpuscular volume 86 [foz_us] 80-99 Automated erythrocyte mean corpuscular hemoglobin (mass per erythrocyte) 30 pg 25-34 Automated erythrocyte mean corpuscular hemoglobin concentration measurement ( mass/volume) 35 g/dL 32-36 Automated erythrocyte distribution width ratio 14.3 % 10.0-14.5 Automated blood platelet count (count/volume) 190 10*3/uL 130-400 Automated blood platelet mean volume measurement 9.7 [foz_us] 7.4-10.4 Automated blood neutrophils/100 leukocytes 86 % 42-75 Automated blood lymphocytes/100 leukocytes 5 % 12-44 Blood monocytes/100 leukocytes 9 % 0-12 Automated blood eosinophils/100 leukocytes 0 % 0-10 Automated blood basophils/100 leukocytes 0 % 0-10 Blood neutrophils automated count (number/volume) 11.4 10*3 1.8-7.8 Blood lymphocytes automated count (number/volume) 0.7 10*3 1.0-4.0 Blood monocytes automated count (number/volume) 1.2 10*3 0.0-1.0 Automated eosinophil count 0.0 10*3/uL 0.0-0.3 Automated blood basophil count (count/volume) 0.0 10*3/uL 0.0-0.1 Serum or plasma choriogonadotropin ( test) detection - 05/14/18 17:02 Serum or plasma choriogonadotropin ( test) detection NEGATIVE NEGATIVE Comprehensive metabolic panel - 05/14/18 17:02 Serum or plasma sodium measurement (moles/volume) 133 mmol/L 135-145 Serum or plasma potassium measurement (moles/volume) 3.5 mmol/L 3.6-5.0 Serum or plasma chloride measurement (moles/volume) 100 mmol/L 98-107 Carbon dioxide 23 mmol/L 21-32 Serum or plasma anion gap determination (moles/volume) 10 mmol/L 5-14 Serum or plasma urea nitrogen measurement (mass/volume) 10 mg/dL 7-18 Serum or plasma creatinine measurement (mass/volume) 0.99 mg/dL 0.60-1.30 Serum or plasma urea nitrogen/creatinine mass ratio 10 NRG Serum or plasma creatinine measurement with calculation of estimated glomerular filtration rate > NRG Serum or plasma glucose measurement (mass/volume) 124 mg/dL 70-105 Serum or plasma calcium measurement (mass/volume) 8.8 mg/dL 8.5-10.1 Serum or plasma total bilirubin measurement (mass/volume) 0.8 mg/dL 0.1-1.0 Serum or plasma alkaline phosphatase measurement (enzymatic activity/volume) 86 U/L 40-136 Serum or plasma aspartate aminotransferase measurement (enzymatic activity/ volume) 27 U/L 5-34 Serum or plasma alanine aminotransferase measurement (enzymatic activity/volume ) 30 U/L 0-55 Serum or plasma protein measurement (mass/volume) 6.7 g/dL 6.4-8.2 Serum or plasma albumin measurement (mass/volume) 3.8 g/dL 3.2-4.5 Blood manual differential performed detection - 05/14/18 17:02 Blood monocytes/100 leukocytes 7 % NRG Manual blood segmented neutrophils/100 leukocytes 84 % NRG Blood band neutrophils/100 leukocytes 1 % NRG Manual blood lymphocytes/100 leukocytes 8 % NRG Manual eosinophils/100 leukocytes in nose 0 % NRG Manual blood basophils/100 leukocytes 0 % NRG Blood erythrocyte morphology finding identification NORMAL NRG Serum or plasma C reactive protein measurement (mass/volume) - 05/14/18 17:02 Serum or plasma C reactive protein measurement (mass/volume) 24.51 mg/dL 0.00-0.50 Complete urinalysis with reflex to culture - 05/14/18 18:03 Urine color determination YELLOW NRG Urine clarity determination SLIGHTLY CLOUDY NRG Urine pH measurement by test strip 6 5-9 Specific gravity of urine by test strip 1.015 1.016- 1.022 Urine protein assay by test strip, semi-quantitative 3+ NEGATIVE Urine glucose detection by automated test strip NEGATIVE NEGATIVE Erythrocytes detection in urine sediment by light microscopy 4+ NEGATIVE Urine ketones detection by automated test strip 3+ NEGATIVE Urine nitrite detection by test strip NEGATIVE NEGATIVE Urine total bilirubin detection by test strip 1+ NEGATIVE Urine urobilinogen measurement by automated test strip (mass/volume) 8 mg/dL NORMAL Urine leukocyte esterase detection by dipstick 3+ NEGATIVE Automated urine sediment erythrocyte count by microscopy (number/high power field) [HPF] NRG Automated urine sediment leukocyte count by microscopy (number/high power field ) TNTC NRG Bacteria detection in urine sediment by light microscopy MODERATE NRG Squamous epithelial cells detection in urine sediment by light microscopy 2-5 NRG Crystals detection in urine sediment by light microscopy NONE NRG Casts detection in urine sediment by light microscopy NONE NRG Mucus detection in urine sediment by light microscopy SMALL NRG Complete urinalysis with reflex to culture YES NRG Bacterial urine culture - 05/14/18 18:03 Bacterial urine culture [id number] NRG COLONY COUNT >100,000/ML NRG FTX;REPORTABLE RML REPORTED SENSITIVITY 05/16 09:05 NRG RML Sensitivity Panel - 05/14/18 18:03 Gentamicin susceptibility test by minimum inhibitory concentration < = NRG Trimethoprim/sulfamethoxazole susceptibility test by minimum inhibitoryconcentration <= NRG Levofloxacin susceptibility test by minimum inhibitory concentration <= NRG Ampicillin susceptibility test by minimum inhibitory concentration < = NRG Cefazolin susceptibility test by minimum inhibitory concentration < = NRG Ceftriaxone susceptibility test by minimum inhibitory concentration <= NRG Ciprofloxacin susceptibility test by minimum inhibitory concentration <= NRG Meropenem susceptibility test by minimum inhibitory concentration < = NRG Nitrofurantoin susceptibility test by minimum inhibitory concentration <= NRG Amoxicillin and clavulanate potassium susc SOFY <= NRG Blood lactic acid measurement (moles/volume) - 05/14/18 19:08 Blood lactic acid measurement (moles/volume) 0.98 mmol/L 0.50-2.00 Bacterial blood culture - 05/14/18 19:08 Bacterial blood culture NG NRG Bacterial blood culture - 05/14/18 19:23 Bacterial blood culture NG NRG Complete blood count (CBC) with automated white blood cell (WBC) differential - 05/15/18 05:55 Blood leukocytes automated count (number/volume) 9.2 10*3/uL 4.3-11.0 Blood erythrocytes automated count (number/volume) 4.00 10*6/uL 4.35-5.85 Venous blood hemoglobin measurement (mass/volume) 12.0 g/dL 11.5-16.0 Blood hematocrit (volume fraction) 34 % 35-52 Automated erythrocyte mean corpuscular volume 86 [foz_us] 80-99 Automated erythrocyte mean corpuscular hemoglobin (mass per erythrocyte) 30 pg 25-34 Automated erythrocyte mean corpuscular hemoglobin concentration measurement ( mass/volume) 35 g/dL 32-36 Automated erythrocyte distribution width ratio 14.1 % 10.0-14.5 Automated blood platelet count (count/volume) 142 10*3/uL 130-400 Automated blood platelet mean volume measurement 10.3 [foz_us] 7.4-10.4 Automated blood neutrophils/100 leukocytes 84 % 42-75 Automated blood lymphocytes/100 leukocytes 7 % 12-44 Blood monocytes/100 leukocytes 9 % 0-12 Automated blood eosinophils/100 leukocytes 0 % 0-10 Automated blood basophils/100 leukocytes 0 % 0-10 Blood neutrophils automated count (number/volume) 7.7 10*3 1.8-7.8 Blood lymphocytes automated count (number/volume) 0.6 10*3 1.0-4.0 Blood monocytes automated count (number/volume) 0.9 10*3 0.0-1.0 Automated eosinophil count 0.0 10*3/uL 0.0-0.3 Automated blood basophil count (count/volume) 0.0 10*3/uL 0.0-0.1 Whole blood basic metabolic panel - 05/15/18 05:55 Serum or plasma sodium measurement (moles/volume) 135 mmol/L 135-145 Serum or plasma potassium measurement (moles/volume) 3.6 mmol/L 3.6-5.0 Serum or plasma chloride measurement (moles/volume) 107 mmol/L 98-107 Carbon dioxide 16 mmol/L 21-32 Serum or plasma anion gap determination (moles/volume) 12 mmol/L 5-14 Serum or plasma urea nitrogen measurement (mass/volume) 13 mg/dL 7-18 Serum or plasma creatinine measurement (mass/volume) 0.80 mg/dL 0.60-1.30 Serum or plasma urea nitrogen/creatinine mass ratio 16 NRG Serum or plasma creatinine measurement with calculation of estimated glomerular filtration rate > NRG Serum or plasma glucose measurement (mass/volume) 105 mg/dL 70-105 Serum or plasma calcium measurement (mass/volume) 7.8 mg/dL 8.5-10.1 Complete blood count (CBC) with automated white blood cell (WBC) differential - 05/16/18 06:03 Blood leukocytes automated count (number/volume) 6.7 10*3/uL 4.3-11.0 Blood erythrocytes automated count (number/volume) 3.59 10*6/uL 4.35-5.85 Venous blood hemoglobin measurement (mass/volume) 10.3 g/dL 11.5-16.0 Blood hematocrit (volume fraction) 31 % 35-52 Automated erythrocyte mean corpuscular volume 86 [foz_us] 80-99 Automated erythrocyte mean corpuscular hemoglobin (mass per erythrocyte) 29 pg 25-34 Automated erythrocyte mean corpuscular hemoglobin concentration measurement ( mass/volume) 33 g/dL 32-36 Automated erythrocyte distribution width ratio 14.5 % 10.0-14.5 Automated blood platelet count (count/volume) 160 10*3/uL 130-400 Automated blood platelet mean volume measurement 10.4 [foz_us] 7.4-10.4 Automated blood neutrophils/100 leukocytes 71 % 42-75 Automated blood lymphocytes/100 leukocytes 13 % 12-44 Blood monocytes/100 leukocytes 16 % 0-12 Automated blood eosinophils/100 leukocytes 0 % 0-10 Automated blood basophils/100 leukocytes 0 % 0-10 Blood neutrophils automated count (number/volume) 4.8 10*3 1.8-7.8 Blood lymphocytes automated count (number/volume) 0.9 10*3 1.0-4.0 Blood monocytes automated count (number/volume) 1.1 10*3 0.0-1.0 Automated eosinophil count 0.0 10*3/uL 0.0-0.3 Automated blood basophil count (count/volume) 0.0 10*3/uL 0.0-0.1 Comprehensive metabolic panel - 05/16/18 06:03 Serum or plasma sodium measurement (moles/volume) 136 mmol/L 135-145 Serum or plasma potassium measurement (moles/volume) 3.1 mmol/L 3.6-5.0 Serum or plasma chloride measurement (moles/volume) 110 mmol/L 98-107 Carbon dioxide 17 mmol/L 21-32 Serum or plasma anion gap determination (moles/volume) 9 mmol/L 5-14 Serum or plasma urea nitrogen measurement (mass/volume) 6 mg/dL 7-18 Serum or plasma creatinine measurement (mass/volume) 0.64 mg/dL 0.60-1.30 Serum or plasma urea nitrogen/creatinine mass ratio 9 NRG Serum or plasma creatinine measurement with calculation of estimated glomerular filtration rate > NRG Serum or plasma glucose measurement (mass/volume) 112 mg/dL 70-105 Serum or plasma calcium measurement (mass/volume) 7.5 mg/dL 8.5-10.1 Serum or plasma total bilirubin measurement (mass/volume) 0.2 mg/dL 0.1-1.0 Serum or plasma alkaline phosphatase measurement (enzymatic activity/volume) 66 U/L 40-136 Serum or plasma aspartate aminotransferase measurement (enzymatic activity/ volume) 26 U/L 5-34 Serum or plasma alanine aminotransferase measurement (enzymatic activity/volume ) 35 U/L 0-55 Serum or plasma protein measurement (mass/volume) 4.4 g/dL 6.4-8.2 Serum or plasma albumin measurement (mass/volume) 2.6 g/dL 3.2-4.5 CBC - 05/23/18 10:42 WHITE BLOOD CELL COUNT 9.6 Thousand/uL 3.8-10.8 RED BLOOD CELL COUNT 4.51 Million/uL 3.80-5.10 HEMOGLOBIN 12.9 g/dL 11.7-15.5 HEMATOCRIT 39.4 % 35.0-45.0 MCV 87.4 fL 80.0-100.0 MCH 28.6 pg 27.0-33.0 MCHC 32.7 g/dL 32.0-36.0 RDW 13.7 % 11.0-15.0 PLATELET COUNT 584 Thousand/uL 140-400 MPV 8.7 fL 7.5-12.5 COMMENT(S) NRG DIFFERENTIAL, MANUAL - 05/23/18 10:42 ABSOLUTE NEUTROPHILS 5136 cells/uL [id number] ABSOLUTE MONOCYTES 384 cells/uL 200-950 ABSOLUTE EOSINOPHILS 394 cells/uL 15-500 ABSOLUTE BASOPHILS 0 cells/uL 0-200 NEUTROPHILS 53.5 % NRG LYMPHOCYTES 35.4 % NRG MONOCYTES 4.0 % NRG EOSINOPHILS 4.1 % NRG BASOPHILS 0 % NRG ABSOLUTE BAND NEUTROPHILS 192 cells/uL 0-750 ABSOLUTE METAMYELOCYTES 96 cells/uL ABSOLUTE LYMPHOCYTES 3398 cells/uL 850-3900 BAND NEUTROPHILS 2.0 % NRG METAMYELOCYTES 1.0 % NRG CBC MORPHOLOGY NORMAL NOTE NRG Encounters ACCT No. Visit Date/Time Discharge Status Pt. Type Provider Facility Loc./Unit Complaint [id number] 05/14/2018 19:48:00 05/16/2018 11:10:00 DIS Inpatient TRES VANG, RITO Pringle [facility] 4TH SEPSIS;PYELONEPHRITIS [id number] 12/30/2017 06:36:00 12/30/2017 08:00:00 DIS Emergency TIGIST VANG, RUBY Graff [facility] ER ITCHING ALL OVER [id number] 10/04/2017 09:21:00 10/04/2017 11:15:00 DIS Emergency RAYMUNDO COKER APRN [facility] ER TEETH PAIN,EAR PAIN [id number] 10/03/2017 08:41:00 10/03/2017 09:12:00 DIS Outpatient NATHANIEL CANDELARIO DO [facility] ER EARACHE [id number] 09/18/2017 16:51:00 09/18/2017 18:10:00 DIS Emergency CELESTE BAKER MD [facility] ER BILAT HAND SWELLING/PAIN [id number] 11/06/2018 10:26:00 ACT Emergency NEISHA BOWMAN [facility] ER ABSCESS ON RIGHT INDEX FINGER [id number] 05/28/2018 08:00:00 05/28/2018 23:59:59 [facility] Outpatient FREDDY JEFFERS [facility] [id number] 05/23/2018 10:00:00 Document Registration
[2018-11-06] MEDS ORDERED: MUPIROCIN 2% OINT 22 GM (BACTROBAN) TUBE TOP SCH (21:00)
== END 2018-11-06 12:14 | disposition home or self-care (01) ==
LOC: EDUNIT# 10:23 → ER 10:26
DX: L03.012 Cellulitis of left finger (principal); F17.210 Nicotine dependence, cigarettes, uncomplicated; Z90.89 Acquired absence of other organs; Z87.442 Personal history of urinary calculi
CPT/HCPCS: 64450; 87070; 87077; 87186; 87205

== ENCOUNTER 2019-07-12 20:19 | Emergency (ER) | payer MEDICAID ==
[~2019-07-12] VITALS: Ht 165.1 cm; Wt 59.0 kg
[~2019-07-12 20:19] MED LIST changes: +CEPH-507 PO
--- NOTE | 2019-07-12 20:27 | NUR ---
PT TO ED 9 W/ FAMILY AT THIS TIME. PT UNABLE TO SIT STILL, MOVING ABOUT, ROCKING BACK ET FORTH AT THIS TIME.
[2019-07-12 20:39] LABS: BILIRUBIN,URINE NEGATIVE (NEGATIVE); CLARITY,URINE SLIGHTLY CLOUDY; COLOR,URINE YELLOW; GLUCOSE, URINE (UA) NEGATIVE (NEGATIVE); KETONES,URINE NEGATIVE (NEGATIVE); LEUKOCYTE ESTERASE ,URINE NEGATIVE (NEGATIVE); NITRITE,URINE NEGATIVE (NEGATIVE); PH,URINE 6.5 (5-9); PROTEIN,URINE NEGATIVE (NEGATIVE); UROBILINOGEN,URINE NORMAL (NORMAL)
[2019-07-12 20:45] LABS: BACTERIA,URINE NEGATIVE /HPF; SQUAMOUS EPITHELIAL CELL,UR 25-50 /HPF
[2019-07-12 20:46] LABS: AMORPHOUS SEDIMENT,UR MOD AMOR URATES /LPF
[2019-07-12 20:58] LABS: AMPHETAMINE SCREEN, URINE NEGATIVE (NEGATIVE); BARBITURATE SCREEN URINE NEGATIVE (NEGATIVE); BENZODIAZEPINES SCREEN URINE NEGATIVE (NEGATIVE); CANNABINOID SCREEN, URINE POSITIVE (NEGATIVE); COCAINE SCREEN URINE NEGATIVE (NEGATIVE); METHADONE STAT NEGATIVE (NEGATIVE); METHAMPHETAMINE SCREEN URINE S NEGATIVE (NEGATIVE); OPIATE SCREEN URINE NEGATIVE (NEGATIVE); OXYCODONE STAT NEGATIVE (NEGATIVE); PROPOXYPHENE STAT NEGATIVE (NEGATIVE); TRICYCLIC ANTIDEPRESSANTS SCRE NEGATIVE (NEGATIVE)
[2019-07-12] MEDS ORDERED: PROMETHAZINE/ CODEINE SYRUP 5 ML UDC ONE (21:09)
[2019-07-12] MEDS ORDERED: PROMETHAZINE/ CODEINE SYRUP 5 ML UDC PO ONE (21:15)
[2019-07-12 21:20] VITALS: BP 122/89
[2019-07-12] MEDS ORDERED: FLUC150T PO (21:20)
--- NOTE | 2019-07-12 21:23 | ED Cough/URI ---
General Chief Complaint: General Problems/Pain Stated Complaint: COUGH,HURTS TO PEE Nursing Triage Note: PT TO ED W/ C/O COUGH, CONGESTION ET PAIN UPON URINATION ONSET X1 WK. PT DENIES SEEING PCP FOR C/O AT THIS TIME. Sepsis Screen: No Definite Risk History of Present Illness Date Seen by Provider: Jul 12, 2019 Time Seen by Provider: 20:30 Initial Comments 29-year-old female presents with cough and congestion that has not improved after one week, she's been taking TheraFlu. She denies a productive cough. She also reports vaginal discharge that is white and compatible with previous yeast infection she's had. Timing/Duration: week Severity/Quality: dry cough Prior Episodes/Possible Cause: occasional episodes Associated Symptoms: denies symptoms Allergies and Home Medications Allergies Coded Allergies: No Known Drug Allergies (Unverified , 09/18/17) Home Medications Cephalexin 500 Mg Capsule, 500 MG PO Q6H Prescribed by: NEISHA BOWMAN on 11/06/18 1144 Fluconazole 150 Mg Tablet, 150 MG PO DAILY take 1 tablet every 3 days Prescribed by: PAIGE HENSLEY on 07/12/190 Patient Home Medication List Home Medication List Reviewed: Yes Review of Systems Review of Systems Constitutional: no symptoms reported, see HPI Respiratory: see HPI, cough Genitourinary: see HPI, discharge All Other Systems Reviewed Negative Unless Noted: Yes Past Jhjxwke-Rhyiis-Qeejui Hx Past Med/Social Hx: Reviewed Nursing Past Med/Soc Hx Patient Social History Alcohol Use: Denies Use Alcohol Beverage of Choice: Vodka Recreational Drug Use: No Smoking Status: Current Everyday Smoker Type Used: Cigarettes 2nd Hand Smoke Exposure: No Recent Foreign Travel: No Contact w/Someone Who Travel: No Recent Infectious Disease Expo: No Recent Hopitalizations: No Immunizations Up To Date Tetanus Booster (TDap): Unknown Seasonal Allergies Seasonal Allergies: No Past Medical History Surgeries: Yes (BMT'S X 4 SETS) Ear Surgery, Tonsillectomy Respiratory: No Cardiac: No Neurological: No Sexually Transmitted Disease: No HIV/AIDS: No Genitourinary: Yes Kidney Stones Gastrointestinal: No Musculoskeletal: No Endocrine: No HEENT: Yes Chronic Ear Infection Loss of Vision: Denies Hearing Impairment: Denies Cancer: No Psychosocial: No Integumentary: No Blood Disorders: No Physical Exam Vital Signs - First Documented 8/17/19 20:22 Temp 97.7 Pulse 86 Resp 20 B/P (MAP) 122/89 (100) Pulse Ox 97 O2 Delivery Room Air Capillary Refill : Less Than 3 Seconds Height: 5'5.00" Weight: 130lbs. 2.0oz. 58.986247tz; 22.0 BMI Method:Stated General Appearance: WD/WN, no apparent distress HEENT: PERRL/EOMI, normal ENT inspection, TMs normal, pharynx normal Neck: non-tender, full range of motion, supple, normal inspection Respiratory: chest non-tender, lungs clear, normal breath sounds Cardiovascular: normal peripheral pulses, regular rate, rhythm Gastrointestinal: normal bowel sounds, non tender, soft; No distended, No guarding, No rebound, No tenderness Neurologic/Psychiatric: no motor/sensory deficits, alert, normal mood/affect, oriented x 3 Skin: normal color, warm/dry Progress/Results/Core Measures Suspected Sepsis Recent Fever Within 48 Hours: No Infection Criteria Present: None New/Unexplained Altered Menta: No Sepsis Screen: No Definite Risk SIRS Temperature:97.7 Pulse: 86 Respiratory Rate: 20 Blood Pressure 122 /89 Mean: 100 Results/Orders Lab Results Laboratory Tests Test 07/12/19 20:30 Range/Units Urine Color YELLOW Urine Clarity SLIGHTLY CLOUDY Urine pH 6.5 5-9 Urine Specific [place] 1.020 1.016-1.022 Urine Protein NEGATIVE NEGATIVE Urine Glucose (UA) NEGATIVE NEGATIVE Urine Ketones NEGATIVE NEGATIVE Urine Nitrite NEGATIVE NEGATIVE Urine Bilirubin NEGATIVE NEGATIVE Urine Urobilinogen NORMAL NORMAL MG/DL Urine Leukocyte Esterase NEGATIVE NEGATIVE Urine RBC (Auto) NEGATIVE NEGATIVE Urine RBC NONE /HPF Urine WBC NONE /HPF Urine Squamous Epithelial Cells 25-50 H /HPF Urine Crystals PRESENT H /LPF Urine Amorphous Sediment MOD IRWIN URATES H /LPF Urine Bacteria NEGATIVE /HPF Urine Casts NONE /LPF Urine Mucus NEGATIVE /LPF Urine Culture Indicated NO Urine Opiates Screen NEGATIVE NEGATIVE Urine Oxycodone Screen NEGATIVE NEGATIVE Urine Methadone Screen NEGATIVE NEGATIVE Urine Propoxyphene Screen NEGATIVE NEGATIVE Urine Barbiturates Screen NEGATIVE NEGATIVE Ur Tricyclic Antidepressants Screen NEGATIVE NEGATIVE Urine Phencyclidine Screen NEGATIVE NEGATIVE Urine Amphetamines Screen NEGATIVE NEGATIVE Urine Methamphetamines Screen NEGATIVE NEGATIVE Urine Benzodiazepines Screen NEGATIVE NEGATIVE Urine Cocaine Screen NEGATIVE NEGATIVE Urine Cannabinoids Screen POSITIVE H NEGATIVE My Orders Orders - AYDEN,PAIGE DIRECTOR [employer] ADVERTISING Ua Culture If Indicated (07/12/19 20:20) Drug Screen Stat (Urine) (07/12/19 20:33) Promethazine/ Codeine Syrup (Phenergan W (07/12/19 21:15) Promethazine/ Codeine Syrup (Phenergan W (07/12/19 21:09) Medications Given in ED Current Medications Medications Dose Ordered Sig/Andrez Route Start Time Stop Time Status Last Admin Dose Admin Promethazine HCl/ Codeine 5 ml ONCE ONCE PO 07/12/19 21:15 07/12/19 21:16 DC 07/12/19 21:19 5 ML Vital Signs/I&O 07/12/19 07/12/19 20:22 21:20 Temp 97.7 97.7 Pulse 86 86 Resp 20 20 B/P (MAP) 122/89 (100) 122/89 (100) Pulse Ox 97 97 O2 Delivery Room Air Capillary Refill : Less Than 3 Seconds Blood Pressure Mean: 100 Departure Impression Primary Impression: Cough Additional Impression: Candidal vaginitis Disposition: HOME, SELF-CARE Condition: Improved Departure-Patient Inst. Decision time for Depature: 21:10 Referrals: [facility] (PCP/Family) Primary Care Physician Patient Instructions: Viral Upper Respiratory Infection, Adult (DC), Vaginal Yeast Infection (DC) Add. Discharge Instructions: Use hron-vmt-ypigcsk Muccinex, 1 tablet with a full glass of water. Alternate between ibuprofen 600 mg and Tylenol 650 mg every 4 hours. Take the Diflucan as prescribed. Follow-up at [facility] if symptoms are not improving or worsen. Turned to emergency department for temperature greater than 101 not relieved by Tylenol or ibuprofen, difficulty breathing, or new concerns. All discharge instructions reviewed with patient and/or family. Voiced understanding. Scripts Fluconazole (Diflucan) 150 Mg Tablet 150 MG PO DAILY, #3 TAB 0 Refills take 1 tablet every 3 days Prov: PAIGE HENSLEY 07/12/19 PAIGE HENSLEY Jul 12, 2019 21:23
== END 2019-07-12 21:25 | disposition home or self-care (01) ==
LOC: EDUNIT# 20:19 → ER 20:20
DX: R05 Cough (principal); B37.3 Candidiasis of vulva and vagina; F17.210 Nicotine dependence, cigarettes, uncomplicated; Z87.442 Personal history of urinary calculi; Z90.89 Acquired absence of other organs
CPT/HCPCS: 80306; 81000; 99283

== ENCOUNTER 2019-08-18 20:06 | Emergency (ER) | payer MEDICAID ==
[~2019-08-18] VITALS: Ht 162.5 cm; Wt 59.0 kg
[~2019-08-18 20:06] MED LIST changes: +FLUC150T PO
[2019-08-18] MEDS ORDERED: FLUC150T PO (20:30)
--- NOTE | 2019-08-18 20:30 | ED GU-Female ---
General Chief Complaint: - Urinary Stated Complaint: VAGINAL ITCHING Nursing Triage Note: vaginal itching x2 weeks Nursing Sepsis Screen: No Definite Risk Source: patient Exam Limitations: no limitations History of Present Illness Date Seen by Provider: Aug 18, 2019 Time Seen by Provider: 20:29 Allergies and Home Medications Allergies Coded Allergies: No Known Drug Allergies (Unverified , 09/18/17) Home Medications Fluconazole 150 Mg Tablet, 150 MG PO DAILY Prescribed by: NEISHA BOWMAN on 08/18/192029 Past [id number] Hx Patient Social History Alcohol Use: Occasionally Uses Number of Drinks Today: 0 Alcohol Beverage of Choice: Vodka Recreational Drug Use: No Smoking Status: Current Everyday Smoker Type Used: Cigarettes 2nd Hand Smoke Exposure: No Recent Foreign Travel: No Contact w/Someone Who Travel: No Recent Infectious Disease Expo: No Recent Hopitalizations: No Physical Abuse: No Sexual Abuse: No Mistreated: No Fear: No Immunizations Up To Date Tetanus Booster (TDap): Unknown Seasonal Allergies Seasonal Allergies: No Past Medical History Surgeries: Yes (BMT'S X 4 SETS) Ear Surgery, Tonsillectomy Respiratory: No Cardiac: No Neurological: No : No Sexually Transmitted Disease: No HIV/AIDS: No Genitourinary: Yes Kidney Stones Gastrointestinal: No Musculoskeletal: No Endocrine: No HEENT: Yes Chronic Ear Infection Loss of Vision: Denies Hearing Impairment: Denies Cancer: No Psychosocial: No Integumentary: No Blood Disorders: No Physical Exam Vital Signs Vital Signs - First Documented 08/18/19 20:13 Temp 36.3 Pulse 82 Resp 16 B/P (MAP) 110/63 (79) Pulse Ox 98 O2 Delivery Room Air Capillary Refill : Less Than 3 Seconds Height, Weight, BMI Height: 5'5.00" Weight: 130lbs. 2.0oz. [id number]; 22.00 BMI Method:Stated Progress/Results/Core Measures Suspected Sepsis Recent Fever Within 48 Hours: No Infection Criteria Present: None New/Unexplained Altered Menta: No Sepsis Screen: No Definite Risk SIRS Temperature: Pulse: 82 Respiratory Rate: 16 Blood Pressure 110 /63 Mean: 79 Results/Orders Vital Signs/I&O 08/18/19 20:13 Temp 36.3 Pulse 82 Resp 16 B/P (MAP) 110/63 (79) Pulse Ox 98 O2 Delivery Room Air Capillary Refill : Less Than 3 Seconds Blood Pressure Mean: 79 Departure Impression Primary Impression: Vaginal yeast infection Disposition: 01 HOME, SELF-CARE Condition: Stable/Unchanged Departure-Patient Inst. Decision time for Depature: 20:29 Referrals: [facility] (PCP/Family) Primary Care Physician Patient Instructions: Yeast Infection (DC) Add. Discharge Instructions: Take medication as directed. Follow-up with her primary care provider within 1 week for recheck. Return back to the emergency room for worsening symptoms or concerns as needed. All discharge instructions reviewed with patient and/or family. Voiced understanding. Scripts Fluconazole (Diflucan) 150 Mg Tablet 150 MG PO DAILY for 3 Days, #3 TAB Prov: NEISHA BOWMAN 08/18/19 Work/School Note: Work Release Form Date Seen in the Emergency Department: Aug 18, 2019 Return to Work: Aug 19, 2019 Restrictions: No Restrictions NEISHA BOWMAN Aug 18, 2019 20:30
[2019-08-18 20:56] VITALS: BP 110/63
== END 2019-08-18 20:58 | disposition home or self-care (01) ==
LOC: EDUNIT# 20:06 → ER 20:07
DX: B37.3 Candidiasis of vulva and vagina (principal); F17.210 Nicotine dependence, cigarettes, uncomplicated; Z90.89 Acquired absence of other organs; Z87.442 Personal history of urinary calculi
CPT/HCPCS: 99282